=== PATIENT | male | born 1945 | race Caucasian/White ===

== ENCOUNTER 2016-08-16 11:54 | Day surgery (SDC) | payer MEDICARE, OTHER ==
[2016-08-13 11:33] LABS: HEMATOCRIT 37.2 % (40.0-51.0); HEMOGLOBIN 12.2 g/dL (13.6-17.8)
[2016-08-13 11:47] LABS: CALCIUM, SERUM 8.7 MG/DL (8.5-10.4); CHLORIDE, SERUM 99 MMOL/L (96-112); GFR AFRICAN AMERICAN 48 ML/MIN (>=60); GFR NON AFRICAN AMERICAN 41 ML/MIN (>=60); GLUCOSE, SERUM 133 MG/DL (60-99); SODIUM, SERUM 136 MMOL/L (135-148)
[2016-08-13 11:50] LABS: POTASSIUM, SERUM 4.9 MMOL/L (3.5-5.3)
[2016-08-13 11:51] LABS: BUN (BLOOD UREA NITROGEN) 26 MG/DL (6-23); CO2 (CARBON DIOXIDE) 32 MMOL/L (24-34); CREATININE 1.66 MG/DL (0.70-1.30)
--- NOTE | ~2016-08-16 | OP ---
Record Of Operation [facility] [address] [place]. [address] NAME: DRU JEFFRIES : 47 STATUS : [facility] UNIT#: [id number] AGE: 71 ADM/REG DATE : 08/16/16 MR#: [id number] REPORT SERV DATE: 08/17/16 DICTATED BY: VINNY KURTZ JR. DATE: 08/16/16 REPORT STATUS : Draft TRANSCRIBED BY: MODLei DATE: 08/16/16 DATE OF PROCEDURE: 08/16/2016 SURGEON: Vinny Kurtz M.D. PREOPERATIVE DIAGNOSIS: Bladder tumor. POSTOPERATIVE DIAGNOSIS: Bladder tumor. PROCEDURE PERFORMED: Cystoscopy, bilateral retrograde pyelogram, transurethral resection of bladder tumor, 4 cm in size. COMPLICATIONS: None. CONSULTATIONS: None. ANESTHESIA: General with an endotracheal tube. SPECIMENS: Bladder tumor. DRAINS: An 18-Belarusian Tolliver catheter. ESTIMATED BLOOD LOSS: None. INDICATION: Mr. Jeffries is a 71-year-old gentleman with a history of both microscopic and intermittent gross hematuria. Cystoscopic examination in the office revealed a 4 cm bladder tumor along the right side of the bladder, lateral to the trigone, getting very close to the right ureteral orifice, but not involving the orifice. He also had some small daughter tumors on the opposite side of the bladder, but the rest of the bladder mucosa was normal. Retrograde pyelograms were performed using a 5-Belarusian open-ended catheter on both sides. Both ureteral lengths were normal with normal course and caliber. The renal collecting systems bilaterally were free of filling defect or hydronephrosis. There was no evidence of obstruction and normal retrograde bilaterally. I then removed the cystoscope and replaced it with a resectoscope. Small satellite tumors were removed using the resectoscope along with the larger tumor on the right side of the bladder down to the muscularis propria and including the muscularis propria in the central portion of the lesion. The right ureteral orifice was spared. I cauterized the base of the resection and removed the tumor pieces using an KeilyThinkVidya evacuator. I reinspected the bladder to make sure all the pieces had been removed, hemostasis was good. I then placed an 18-Belarusian Tolliver catheter for placement of mitomycin in the recovery room. The patient was awakened in the operating room, transferred to the postanesthesia care unit in stable condition. Due to the large size of the resection, I recommended that he keep his catheter until . I will see him back in the office at that time for catheter removal and pathology review. Record Of Operation [facility] [address] [place] [address] NAME: DUR JEFFRIES : 47 STATUS : [facility] PAT#: [id number] AGE: 71 ADM/REG DATE : 08/16/16 MR#: [id number] REPORT SERV DATE: 08/17/16 DICTATED BY: VINNY KURTZ JR. DATE: 08/16/16 REPORT STATUS : Draft TRANSCRIBED BY: ELOY DATE: 08/16/16 ANKUSH/ELOY Vinny Kurtz Jr., M.D. / [id number]
[~2016-08-16 11:54] MED LIST: ADVAIR250 INH; CRESTOR10 PO; GLUCPH PO; HCTZ25B PO; KLOR-CON 1010 MEQ PO; LIPITOR40 PO; LOP25 PO; MAGOX4 PO; NORV5 PO; PCET PO; SODBICAR10 PO; SPIRO25 PO; VENTOLIN HFA INH; VITAMIN D31000 UNIT PO; ZYRTEC ALLGY10 MG PO
[2016-12-21] MEDS ORDERED: CARDCD240 PO (11:11)
[2016-12-21] MEDS ORDERED: XARELTO20 MG PO (11:13)
[2017-02-10] MEDS ORDERED: ANOROELLIPTA INH (10:25)
[2017-02-10] MEDS ORDERED: KLOR-CON M2020 MEQ PO (10:26)
[2017-02-10] MEDS ORDERED: ASAB PO (10:26)
[2017-02-10] MEDS ORDERED: L40 PO (10:26)
[2017-02-10] MEDS ORDERED: VITAMIN D31000 UNIT PO (10:27)
== END 2016-08-16 21:22 | disposition home or self-care (01) ==
LOC: SDC 11:54
PROVIDERS: Urology
PROC: 0TBB8ZX Excision of Bladder, Via Natural or Artificial Opening Endoscopic, Diagnostic (ICD-10-PCS; principal; 2016-08-16 14:00)
DX: C67.0 Malignant neoplasm of trigone of bladder (principal); I10 Essential (primary) hypertension; E78.00 Pure hypercholesterolemia, unspecified; F17.210 Nicotine dependence, cigarettes, uncomplicated; J44.9 Chronic obstructive pulmonary disease, unspecified; I71.4 Abdominal aortic aneurysm, without rupture; N28.9 Disorder of kidney and ureter, unspecified; Z85.118 Personal history of other malignant neoplasm of bronchus and lung; Z79.899 Other long term (current) drug therapy
CPT/HCPCS: 80048; 85014; 85018; 88307; 93005; A9270-GY; C1758; J2250; J3010; J9280; Q9967